=== PATIENT | male | born 1990 | race Two or more races ===

== ENCOUNTER 2017-07-18 08:34 | Emergency (ER) | payer BC ==
[2017-07-18 08:42] VITALS: BP 100/60; PULSE 91; TEMP 98.2; BMI 20.5
[2017-07-18] MEDS ORDERED: ALBUTEROL SO4 2.5/IPRATROPIUM 0.5 INH SOL 3 ML VIAL.NEB. NEB ONE ×2 (08:51→09:08)
--- NOTE | 2017-07-18 08:51 | PDOC ---
History of Present Illness - General Chief Complaint: Shortness of Breath Stated Complaint: SOB, (ASTHMA) Time Seen by Provider: 07/18/17 08:45 History Source: Patient Exam Limitations: No Limitations - History of Present Illness Initial Comments: 07/18/17 08:51 Best Contact: PCP: Dr. Ronquillo/fashion illustrator Pmhx: Asthma/no history of intubation. Last admitted to the hospital was when he was 6 years old Pshx: 2017: Left eye sx Allergies:NKDA FH:None Social Hx: Ciarettes/ 0 Alcohol/ occasionally Drugs/0 LMP:N/A 26-year-old male presents to the ER complaining of shortness of breath 3 hours. Patient states he's been coughing yesterday which triggered his asthma. Patient states he ran out of his Advair inhaler. Patient denies fever, chills, nausea/vomiting, headache, dizziness, lightheadedness, facial pains, rhinorrhea , nasal congestion, earaches, sore throat, difficulty swallowing, neck pain/ stiffness, back pains, chest pain, abdominal pains, flank pains, urinary symptoms. Patient states this is one of his mild to moderate asthma attack. Past History - Past Medical History Allergies/Adverse Reactions: Allergies Allergy/AdvReac Type Severity Reaction Status Date / Time No Known Drug Allergies Allergy Verified 07/18/17 08:38 SEAFOOD Allergy Unknown Swelling Uncoded 07/18/17 08:38 Home Medications: Ambulatory Orders Albuterol 0.083% Nebulizer Deidre [Ventolin 0.083% Nebulizer Soln -] 1 neb NEB Q4H PRN #30 vial 03/26/15 Salmeterol/Fluticasone [Advair 100Mcg/50Mcg -] 1 inh PO BID #1 inhaler 05/15/15 Fluticasone/Salmeterol [Advair 250-50 Diskus] 1 each IH BID #1 blst.w.dev predniSONE [Deltasone -] 40 mg PO DAILY #5 tablet 07/18/17 Anemia: Yes Asthma: Yes COPD: No - Immunization History Immunization Up to Date: Yes - Suicide/Smoking/Psychosocial Hx Smoking Status: No Smoking History: Never smoked Have you smoked in the past 12 months: Yes Number of Cigarettes Smoked Daily: 1 Information on smoking cessation initiated: No 'Breaking Loose' booklet given: 03/26/15 Hx Alcohol Use: Yes (social) Drug/Substance Use Hx: No Substance Use Type: None Respiratory Specific PMHX - Complaint Specific PMHX Angina: No Bronchitis: Yes Pneumonia: No Pulmonary Embolus: No TB (Tuberculosis): No Review of Systems - Review of Systems Able to Perform ROS?: Yes Comments:: 07/18/17 08:59 CONSTITUTIONAL: Absent: fever, chills, diaphoresis, generalized weakness, malaise, loss of appetite HEENT: Absent: rhinorrhea, nasal congestion, throat pain, throat swelling, difficulty swallowing, mouth swelling, ear pain, eye pain, visual Changes CARDIOVASCULAR: Absent: chest pain, loss of consciousness, palpitations, irregular heart rate, peripheral edema RESPIRATORY: +cough, sob Absent: shortness of breath, dyspnea with exertion, orthopnea, wheezing, stridor , hemoptysis GASTROINTESTINAL: Absent: abdominal pain, abdominal distension, nausea, vomiting, diarrhea, constipation, melena, hematochezia GENITOURINARY: Absent: dysuria, frequency, urgency, hesitancy, hematuria, flank pain, genital pain MUSCULOSKELETAL: Absent: myalgia, arthralgia, joint swelling SKIN: Absent: rash, itching, pallor Is the patient limited [place] Citizen proficient: No *Physical Exam - Vital Signs Last Vital Signs Temp Pulse Resp BP Pulse Ox 98.2 F 91 H 20 100/60 99 07/18/17 08:36 07/18/17 08:36 07/18/17 08:36 07/18/17 08:36 07/18/17 08:36 - Physical Exam Comments: 07/18/17 08:59 GENERAL: Well developed, well nourished. Awake and alert. No acute distress. HEENT: Normocephalic, atraumatic. PERRLA, EOMI. No conjunctival pallor. Sclera are non- icteric. Moist mucous membranes. Oropharynx is clear. NECK: Supple. Full ROM. No JVD. Carotid pulses 2+ and symmetric, without bruits. No thyromegaly. No lymphadenopathy. CARDIOVASCULAR: Regular rate and rhythm. No murmurs, rubs, or gallops. Distal pulses are 2+ and symmetric. PULMONARY: B/L lower exp wheezes No evidence of respiratory distress. No rales or rhonchi. ABDOMINAL: Soft. Non-tender. Non-distended. No rebound or guarding. No organomegaly. Normoactive bowel sounds. MUSCULOSKELETAL Normal range of motion at all joints. No bony deformities or tenderness. No CVA tenderness. EXTREMITIES: No cyanosis. No clubbing. No edema. No calf tenderness. SKIN: Warm and dry. Normal capillary refill. No rashes. No jaundice. Progress Note - Progress Note Progress Note: 0915hrs: Pt reports: "I feel so much better" 0936hrs: Pt states if he "felt like this today, I wouldn't have come" Medical Decision Making - Medical Decision Making 07/18/17 09:35 26-year-old male with a history of asthma presents to the ER complaining of shortness of breath. Patient states he ran out of his Advair/asthma medication last week. Patient states he was coughing yesterday which progressed into shortness of breath this morning from constant coughing. Patient presented with expiratory wheezes to the bases he was given 2 nebulizer treatments and 40 prednisone. Patient states he feels a lot better. I refilled his Advair disc and he will follow with his fashion illustrator this week. *DC/Admit/Observation/Transfer Diagnosis at time of Disposition: Asthma Qualifiers: Asthma severity: mild Asthma persistence: intermittent Asthma complication type : uncomplicated Qualified Code(s): J45.20 - Mild intermittent asthma, uncomplicated - Discharge Dispostion Disposition: HOME Condition at time of disposition: Stable Decision to Admit order: No - Prescriptions Prescriptions: Fluticasone/Salmeterol [Advair 250-50 Diskus] 1 each IH BID #1 blst.w.dev predniSONE [Deltasone -] 40 mg PO DAILY #5 tablet - Referrals - Patient Instructions Printed Discharge Instructions: DI for Asthma -- Adult Additional Instructions: Patient was to follow-up with your fashion illustrator as scheduled wedding makeup artist your medication/Advair and prednisone from the pharmacy Return back to the ER for severe/persistent or worsening symptoms - Post Discharge Activity Forms/Work/School Notes: Back to Work
[2017-07-18] MEDS ORDERED: predniSONE 20 MG TABLET (UD) PO ONE (09:08)
[2017-07-18] MEDS ORDERED: predniSONE 20 MG TABLET (UD) ONE (09:10)
== END 2017-07-18 10:08 | disposition home or self-care (01) ==
LOC: JERFT 08:34 → JER 08:34 → JERFT 10:08
PROC: 3E0F7GC Introduction of Other Therapeutic Substance into Respiratory Tract, Via Natural or Artificial Opening (ICD-10-PCS; principal; 2017-07-18)
DX: J45.20 Mild intermittent asthma, uncomplicated (principal)
CPT/HCPCS: 99281-25; J7620

== ENCOUNTER 2018-01-03 12:39 | Emergency (ER) | payer SELFPAY ==
[2018-01-03 12:45] VITALS: BP 148/86; PULSE 100; TEMP 98.4; BMI 21.8
[2018-01-03] MEDS ORDERED: ALBUTEROL SO4 2.5/IPRATROPIUM 0.5 INH SOL 3 ML VIAL.NEB. NEB ONE ×2 (13:06→13:14)
[2018-01-03] MEDS ORDERED: methylPREDNISolone NA SUCC 125 MG/2 ML VIAL IM ONE (13:18)
[2018-01-03] MEDS ORDERED: methylPREDNISolone NA SUCC 125 MG/2 ML VIAL ONE (13:22)
--- NOTE | 2018-01-03 14:01 | PDOC ---
History of Present Illness - General Chief Complaint: Cold Symptoms Stated Complaint: ASTHMA Time Seen by Provider: 01/03/18 13:03 History Source: Patient Exam Limitations: Clinical Condition - History of Present Illness Initial Comments: 01/03/18 14:00 Patient with h/o Asthma Present with complaint of wheezing, chest tightness, nasal congestion and cough since yesterday. Patient denies fever, chills, headache, dizziness, chest pain. Patient denies any other symptoms 01/03/18 14:23 Timing/Duration: 24 hours Past History - Past Medical History Allergies/Adverse Reactions: Allergies Allergy/AdvReac Type Severity Reaction Status Date / Time No Known Drug Allergies Allergy Verified 01/03/18 12:45 SEAFOOD Allergy Unknown Swelling Uncoded 01/03/18 12:45 Home Medications: Ambulatory Orders Albuterol 0.083% Nebulizer Deidre [Ventolin 0.083% Nebulizer Soln -] 1 neb NEB Q4H PRN #30 vial 03/26/15 Salmeterol/Fluticasone [Advair 100Mcg/50Mcg -] 1 inh PO BID #1 inhaler 05/15/15 Fluticasone/Salmeterol [Advair 250-50 Diskus] 1 each IH BID #1 blst.w.dev Loratadine 10 mg PO DAILY #10 capsule 01/03/18 predniSONE [Deltasone -] 20 mg PO BID 5 Days #10 tablet 01/03/18 Anemia: Yes Asthma: Yes COPD: No - Immunization History Immunization Up to Date: Yes - Suicide/Smoking/Psychosocial Hx Smoking Status: No Smoking History: Never smoked Have you smoked in the past 12 months: Yes Number of Cigarettes Smoked Daily: 4 Information on smoking cessation initiated: Yes 'Breaking Loose' booklet given: 01/03/18 Hx Alcohol Use: No Drug/Substance Use Hx: No Substance Use Type: None Review of Systems - Review of Systems Able to Perform ROS?: Yes Is the patient limited [place] proficient: No Constitutional: No: Chills, Fever, Weakness HEENTM: Yes: See HPI, Nose Congestion. No: Eye Pain, Blurred Vision, Tearing, Recent change in vision, Double Vision, Cataracts, Ear Pain, Ocular Prothesis, Ear Discharge, Nose Pain, Tinnitus, Nose Bleeding, Hearing Loss, Throat Pain, Throat Swelling, Mouth Pain, Dental Problems, Difficulty Swallowing, Mouth Swelling, Other Respiratory: Yes: See HPI, Wheezing. No: Cough, Orthopnea, Shortness of Breath , SOB with Exertion, SOB at Rest, Stridor, Productive cough, Hemoptysis, Other Cardiac (ROS): Yes: See HPI, Chest Tightness. No: Chest Pain, Edema, Irregular Heart Rate, Lightheadedness, Palpitations, Syncope, Other ABD/GI: No: Abdominal Distended, Abd. Pain w/ defecation, Blood Streaked Bowels , Constipated, Diarrhea, Difficulty Swallowing, Nausea, Poor Appetite, Poor Fluid Intake, Rectal Bleeding, Vomiting, Indigestion, Abdominal cramping, Tarry Stools, Other All Other Systems: Reviewed and Negative *Physical Exam - Vital Signs Last Vital Signs Temp Pulse Resp BP Pulse Ox 98.4 F 100 H 19 148/86 98 01/03/18 12:44 01/03/18 12:44 01/03/18 12:44 01/03/18 12:44 01/03/18 12:44 - Physical Exam Comments: 01/03/18 14:24 GENERAL: Well developed, well nourished. Awake and alert. No acute distress. HEENT: Normocephalic, atraumatic. PERRLA, EOMI. No conjunctival pallor. Sclera are non-icteric. Moist mucous membranes. Oropharynx is clear. NECK: Supple. Full ROM. CARDIOVASCULAR: Regular rate and rhythm. No murmurs, rubs, or gallops. Distal pulses are 2+ and symmetric. PULMONARY: Moderate diffuse wheezing.No evidence of respiratory distress. No rales or rhonchi. ABDOMINAL: Soft. Non-tender. Non-distended. No rebound or guarding. No organomegaly. Normoactive bowel sounds. MUSCULOSKELETAL Normal range of motion at all joints. EXTREMITIES: No cyanosis. No clubbing. No edema. No calf tenderness. SKIN: Warm and dry. Normal capillary refill. No rashes. No jaundice. NEUROLOGICAL: Alert, awake, appropriate. Gait is normal without ataxia. PSYCHIATRIC: Cooperative. Good eye contact. Appropriate mood General Appearance: Yes: Nourished, Appropriately Dressed. No: Apparent Distress ED Treatment Course - Medications Given in the ED: ED Medications Discontinued Medications Generic Name Dose Route Start Last Admin Trade Name Freq PRN Reason Stop Dose Admin Albuterol/Ipratropium 1 amp 01/03/18 13:06 01/03/18 13:19 Duoneb - NEB 01/03/18 13:07 1 amp ONCE ONE Administration Methylprednisolone Sodium Succinate 125 mg 01/03/18 13:18 01/03/18 13:30 Solu-Medrol - IM 01/03/18 13:19 125 mg ONCE ONE Administration Medical Decision Making - Medical Decision Making 01/03/18 14:25 Patient with history of asthma present with complaint of nasal congestion, wheezing, chest tightness and cough since yesterday. Exam significant for moderate diffuse wheezing. Nebulizer treatment of albuterol and Atrovent given which relieved bronchospasm and wheezing. Solu-Medrol 125 mg IM given. Patient is stable for discharge on prednisone and home rescue inhaler with geospatial applications developer follow-up. *DC/Admit/Observation/Transfer Diagnosis at time of Disposition: Cough Asthma exacerbation Qualifiers: Asthma severity: moderate Asthma persistence: unspecified Qualified Code(s): J45.901 - Unspecified asthma with (acute) exacerbation URI (upper respiratory infection) Qualifiers: URI type: unspecified URI Qualified Code(s): J06.9 - Acute upper respiratory infection, unspecified - Discharge Dispostion Disposition: HOME Condition at time of disposition: Stable Decision to Admit order: No - Prescriptions Prescriptions: Loratadine 10 mg PO DAILY #10 capsule predniSONE [Deltasone -] 20 mg PO BID 5 Days #10 tablet - Referrals Referrals: Demetrio Huntley MD [Staff Physician] - - Patient Instructions Printed Discharge Instructions: DI for Asthma -- Adult Additional Instructions: Take medications as prescribed. Follow-up with primary care as needed. - Post Discharge Activity
== END 2018-01-03 14:36 | disposition home or self-care (01) ==
LOC: JERFT 12:39
PROC: 3E0233Z Introduction of Anti-inflammatory into Muscle, Percutaneous Approach (ICD-10-PCS; principal; 2018-01-03)
PROC: 3E0F7GC Introduction of Other Therapeutic Substance into Respiratory Tract, Via Natural or Artificial Opening (ICD-10-PCS; 2018-01-03)
DX: J45.901 Unspecified asthma with (acute) exacerbation (principal)
CPT/HCPCS: 99281-25

== ENCOUNTER 2018-02-02 10:04 | Emergency (ER) | payer SELFPAY ==
[2018-02-02 10:21] VITALS: BP 145/81; PULSE 88; TEMP 99.2; BMI 20.3
[2018-02-02] MEDS ORDERED: ALBUTEROL SO4 2.5/IPRATROPIUM 0.5 INH SOL 3 ML VIAL.NEB. NEB ONE ×3 (10:34→11:45)
[2018-02-02] MEDS ORDERED: predniSONE 20 MG TABLET (UD) ONE (10:34)
[2018-02-02] MEDS ORDERED: predniSONE 20 MG TABLET (UD) PO ONE (10:35)
[2018-02-02] MEDS: ALBUTEROL SO4 2.5/IPRATROPIUM 0.5 INH SOL 3 ML VIAL.NEB. NEB SCH ×2 (10:38→11:03)
--- NOTE | 2018-02-02 10:38 | PDOC ---
History of Present Illness - General Chief Complaint: Asthma Stated Complaint: ASTHMA Time Seen by Provider: 02/02/18 10:33 History Source: Patient Exam Limitations: No Limitations - History of Present Illness Initial Comments: 02/02/18 10:36 Patient came to emergency department for evaluation of wheezing, chest tightness , and asthma exacerbation with cold. Denies fever, states has some whitish phlegm production but denies sore throat pain or ear pain. Severity: reports: mild, moderate Associated Symptoms: reports: denies symptoms, chest pain/soreness, cough, fever /chills, nasal congestion Past History - Travel Traveled outside of the country in the last 30 days: No Close contact w/someone who was outside of country & ill: No - Past Medical History Allergies/Adverse Reactions: Allergies Allergy/AdvReac Type Severity Reaction Status Date / Time No Known Drug Allergies Allergy Verified 02/02/18 10:33 SEAFOOD Allergy Unknown Swelling Uncoded 02/02/18 10:33 Home Medications: Ambulatory Orders Albuterol 0.083% Nebulizer Deidre [Ventolin 0.083% Nebulizer Soln -] 1 neb NEB Q4H PRN #30 vial 03/26/15 Fluticasone/Salmeterol [Advair 250-50 Diskus] 1 each IH BID #1 blst.w.dev Albuterol 0.083% Nebulizer Deidre [Ventolin 0.083% Nebulizer Soln -] 1 neb NEB Q4H PRN #30 vial 02/02/18 predniSONE [Deltasone -] 20 mg PO BID #8 tablet 02/02/18 Anemia: Yes Asthma: Yes COPD: No - Immunization History Immunization Up to Date: Yes - Suicide/Smoking/Psychosocial Hx Smoking Status: No Smoking History: Former smoker Have you smoked in the past 12 months: No Number of Cigarettes Smoked Daily: 4 If you are a former smoker, when did you quit?: 2months Information on smoking cessation initiated: No 'Breaking Loose' booklet given: 01/03/18 Hx Alcohol Use: No Drug/Substance Use Hx: No Substance Use Type: None Respiratory Specific PMHX - Complaint Specific PMHX Angina: No Bronchitis: Yes Pneumonia: No Pulmonary Embolus: No TB (Tuberculosis): No Review of Systems - Review of Systems Able to Perform ROS?: Yes Is the patient limited [place] proficient: Yes Constitutional: Yes: Symptoms Reported, See HPI, Malaise. No: Fever, Loss of Appetite HEENTM: Yes: Symptoms Reported, See HPI, Nose Congestion Respiratory: Yes: Symptoms reported, See HPI, Cough, Wheezing Cardiac (ROS): No: Symptoms Reported Musculoskeletal: Yes: See HPI. No: Symptoms Reported Integumentary: Yes: See HPI. No: Symptoms Reported Neurological: Yes: Symptoms reported, See HPI All Other Systems: Reviewed and Negative *Physical Exam - Vital Signs Last Vital Signs Temp Pulse Resp BP Pulse Ox 99.2 F 88 16 145/81 96 02/02/18 10:18 02/02/18 10:18 02/02/18 10:18 02/02/18 10:18 02/02/18 10:18 - Physical Exam General Appearance: Yes: Nourished, Appropriately Dressed, Apparent Distress, Mild Distress HEENT: positive: EOMI, [place], Normal ENT Inspection, TMs Normal (congested but landmarks visualized), Pharynx Normal, Rhinorrhea. negative: Tonsillar Exudate , Tonsillar Erythema, Sinus Tenderness Neck: positive: Supple. negative: Tender Respiratory/Chest: positive: Chest Tender, Decreased Breath Sounds, Wheezing. negative: Lungs Clear, Normal Breath Sounds Gastrointestinal/Abdominal: positive: Soft Musculoskeletal: positive: Normal Inspection Extremity: positive: Normal Capillary Refill Integumentary: positive: Normal Color, Dry, Warm, Pale Neurologic: positive: zone manager II-XII NML intact, Fully Oriented, Alert, Normal Mood/ Affect, Normal Response, Motor Strength 5/5 Moderate Sedation - Procedure Monitoring Vital Signs: Procedure Monitoring Vital Signs Temperature 99.2 F 02/02/18 10:18 Pulse Rate 88 02/02/18 10:18 Respiratory Rate 16 02/02/18 10:18 Blood Pressure 145/81 02/02/18 10:18 O2 Sat by Pulse Oximetry (%) 96 02/02/18 10:18 Progress Note - Progress Note Progress Note: asthma exacerbation, much improved after prednisone and 3 DuoNeb treatments. *DC/Admit/Observation/Transfer Diagnosis at time of Disposition: Asthma exacerbation, mild - Discharge Dispostion Disposition: HOME Condition at time of disposition: Stable Decision to Admit order: No - Prescriptions Prescriptions: Albuterol 0.083% Nebulizer Deidre [Ventolin 0.083% Nebulizer Soln -] 1 neb NEB Q4H PRN #30 vial PRN Reason: Cough predniSONE [Deltasone -] 20 mg PO BID #8 tablet - Referrals Referrals: Shahzad Ronquillo [Primary Care Provider] - - Patient Instructions Printed Discharge Instructions: Asthma -- Adult Additional Instructions: Rest, drink lots of fluids: Teas, water, soups, Pedialyte Saltwater gargles Steamy showers/seem to face break up mucus Avoid contact with others until fevers and cough resolved Lots of handwashing and good hygiene Continue [id number] medications for symptomatic relief Tylenol or Motrin for fever and pain Continue albuterol nebulizers every 4-6 hours for the next 2 days then as needed for continued cough Prednisone as directed until completed Followup with private physician in one to 2 days Return to emergency department / pediatric hospital for worsened symptoms, fevers, dehydration - Post Discharge Activity Forms/Work/School Notes: Back to Work
== END 2018-02-02 12:32 | disposition home or self-care (01) ==
LOC: JER 10:04 → JERFT 10:04
PROC: 3E0F7GC Introduction of Other Therapeutic Substance into Respiratory Tract, Via Natural or Artificial Opening (ICD-10-PCS; principal; 2018-02-02)
PROC: 3E0F7GC Introduction of Other Therapeutic Substance into Respiratory Tract, Via Natural or Artificial Opening (ICD-10-PCS; 2018-02-02)
DX: J45.901 Unspecified asthma with (acute) exacerbation (principal)
CPT/HCPCS: 99281-25

== ENCOUNTER 2018-03-05 14:14 | Emergency (ER) | payer SELFPAY ==
[2018-03-05 14:23] VITALS: BP 142/83; PULSE 94; TEMP 98.2; BMI 21.4
--- NOTE | 2018-03-05 14:23 | PDOC ---
Rapid Medical Evaluation Chief Complaint: Asthma Time Seen by Provider: 03/05/18 14:19 Medical Evaluation: Allergies Allergy/AdvReac Type Severity Reaction Status Date / Time No Known Drug Allergies Allergy Verified 02/02/18 10:33 SEAFOOD Allergy Unknown Swelling Uncoded 02/02/18 10:33 03/05/18 14:20 I performed a brief in person evaluation. CC: Wheezing HPI: Pt is a 27 YO male with a hx of asthma and states that his albuterol is not relieving his wheezing this morning. Pt admits to smoking. PE: Skin: Clear Lungs: Mild wheezing both anteriorly and posteriorly Heart: Tachy MS: Moves all extremities without difficulty Neuro: Alert Psych: Appropriate affect Pt will go to [facility] for further evaluation. Discharge Disposition - Diagnosis Asthma attack Qualifiers: Asthma severity: mild Asthma persistence: unspecified Qualified Code(s): J45.901 - Unspecified asthma with (acute) exacerbation - Referrals - Patient Instructions - Post Discharge Activity
[2018-03-05] MEDS ORDERED: DEXAMETHASONE LIQUID 0.5 MG/5 ML 240 ML BULK BOTTLE PO ONE (14:42)
[2018-03-05] MEDS ORDERED: DEXAMETHASONE SOD PHOSPHATE 10 MG/1 ML VIAL ONE (14:46)
[2018-03-05] MEDS ORDERED: ALBUTEROL SO4 2.5/IPRATROPIUM 0.5 INH SOL 3 ML VIAL.NEB. NEB ONE (14:46)
--- NOTE | 2018-03-05 14:46 | PDOC ---
History of Present Illness - General Chief Complaint: Asthma Stated Complaint: ASTHMA Time Seen by Provider: 03/05/18 14:19 - History of Present Illness Initial Comments: 03/05/18 14:43 27 y/o M w PMH significant for astham presents for evaluaiton of wheezing x1 day unrelieved w home albuterol x1 tx. No systemic symptoms, no prior hospitalizations or intubations for asthma Past History - Past Medical History Allergies/Adverse Reactions: Allergies Allergy/AdvReac Type Severity Reaction Status Date / Time No Known Drug Allergies Allergy Verified 02/02/18 10:33 SEAFOOD Allergy Unknown Swelling Uncoded 02/02/18 10:33 Home Medications: Ambulatory Orders Albuterol 0.083% Nebulizer Deidre [Ventolin 0.083% Nebulizer Soln -] 1 neb NEB Q4H PRN #30 vial 03/26/15 Fluticasone/Salmeterol [Advair 250-50 Diskus] 1 each IH BID #1 blst.w.dev Albuterol 0.083% Nebulizer Deidre [Ventolin 0.083% Nebulizer Soln -] 1 neb NEB Q4H PRN #30 vial 02/02/18 Anemia: Yes Asthma: Yes COPD: No - Immunization History Immunization Up to Date: Yes - Suicide/Smoking/Psychosocial Hx Smoking Status: No Smoking History: Current every day smoker Have you smoked in the past 12 months: No Number of Cigarettes Smoked Daily: 4 If you are a former smoker, when did you quit?: 2months Information on smoking cessation initiated: No 'Breaking Loose' booklet given: 01/03/18 Hx Alcohol Use: No Drug/Substance Use Hx: No Substance Use Type: None Review of Systems - Review of Systems Constitutional: No: Fever Respiratory: Yes: Cough, Shortness of Breath, Wheezing *Physical Exam - Vital Signs Last Vital Signs Temp Pulse Resp BP Pulse Ox 98.2 F 94 H 16 142/83 99 03/05/18 14:20 03/05/18 14:20 03/05/18 14:20 03/05/18 14:20 03/05/18 14:20 - Physical Exam Comments: 03/05/18 14:45 HEAD: NC/AT EYES: Conjuntiva clear Ears: Canals and TM's normal NOSE: No d/c THROAT: Moist mucous membrances, oral pharanx clear, uvula midline NECK: Supple without adenopathy CARDIAC: S1 S2 LUNGS: Diffuse wheezing ABDOMEN: Soft NT ND MS: Full ROM in all joints without edema NEUROLOGIC: No gross sensory or motor deficits, NVID SKIN: Normal color and temperature no lesions or rashes Moderate Sedation - Procedure Monitoring Vital Signs: Procedure Monitoring Vital Signs Temperature 98.2 F 03/05/18 14:20 Pulse Rate 94 H 03/05/18 14:20 Respiratory Rate 16 03/05/18 14:20 Blood Pressure 142/83 03/05/18 14:20 O2 Sat by Pulse Oximetry (%) 99 03/05/18 14:20 Medical Decision Making - Medical Decision Making 03/05/18 16:10 mild wheezing after 2nd duo neb, cleared no wheezing after 4th duo neb *DC/Admit/Observation/Transfer Diagnosis at time of Disposition: Asthma exacerbation Asthma attack Qualifiers: Asthma severity: mild Asthma persistence: unspecified Qualified Code(s): J45.901 - Unspecified asthma with (acute) exacerbation - Discharge Dispostion Disposition: HOME Condition at time of disposition: Improved Decision to Admit order: No - Referrals Referrals: Demetrio Huntley MD [Staff Physician] - - Patient Instructions Printed Discharge Instructions: Asthma -- Adult Additional Instructions: Return to the ER is symptoms return, you were given a long acting steroid today. Follow up with pulmonology in 1-2 days for futher evaluation and treatment options. Continue your current albuterol at home as directed. - Post Discharge Activity
[2018-03-05] MEDS: ALBUTEROL SO4 2.5/IPRATROPIUM 0.5 INH SOL 3 ML VIAL.NEB. NEB SCH ×4 (14:51→16:07)
== END 2018-03-05 16:14 | disposition home or self-care (01) ==
LOC: JERFT 14:14
PROC: 3E0F7GC Introduction of Other Therapeutic Substance into Respiratory Tract, Via Natural or Artificial Opening (ICD-10-PCS; principal; 2018-03-05)
DX: J45.901 Unspecified asthma with (acute) exacerbation (principal); F17.210 Nicotine dependence, cigarettes, uncomplicated
CPT/HCPCS: 99281-25

== ENCOUNTER 2019-02-14 14:58 | Emergency (ER) | payer OTHER ==
[2019-02-14] MEDS ORDERED: ALBUTEROL SO4 2.5/IPRATROPIUM 0.5 INH SOL 3 ML VIAL.NEB. NEB ONE (15:04)
--- NOTE | 2019-02-14 15:04 | PDOC ---
Rapid Medical Evaluation Time Seen by Provider: 02/14/19 15:01 Medical Evaluation: Allergies Allergy/AdvReac Type Severity Reaction Status Date / Time No Known Drug Allergies Allergy Verified 02/14/19 15:01 SEAFOOD Allergy Unknown Swelling Uncoded 02/14/19 15:01 02/14/19 15:02 Pt c/o: hx asthma, cough wheezing sob with relief of inhaler, no fever Pt on brief exam: no wheezing, + rhinorrhea, mild accessory muscle usage Pt ordered for: fredrick Pt to proceed to the ED Discharge Disposition - Diagnosis Shortness of breath - Referrals - Patient Instructions - Post Discharge Activity
[2019-02-14 15:06] VITALS: BP 123/97; PULSE 99; TEMP 97.8; BMI 21.2
--- NOTE | 2019-02-14 16:32 | PDOC ---
History of Present Illness - General Chief Complaint: Cold Symptoms Stated Complaint: ASTHMA Time Seen by Provider: 02/14/19 15:01 History Source: Patient - History of Present Illness Initial Comments: 02/14/19 16:36 Chief complaint: Wheezing Patient 28-year-old male with a history of asthma, never been intubated, has not been hospitalized in about 6 7 years who was sick with upper respiratory infection about 2 weeks ago and found that he has been wheezing in the last day or 2. He has been using his inhaler every couple of hours which seems to be helping but is worried because he is using it too often and he is going to run out. No fever. No shortness of breath. Patient last smoked a cigarette 4 days ago but states he is not regularly smoking GENERAL/CONSTITUTIONAL: No fever, weakness. dizziness HEAD, EYES, EARS, NOSE AND THROAT: No change in vision. No ear pain or discharge. No sore throat. CARDIOVASCULAR: No chest pain RESPIRATORY: + Wheezing GASTROINTESTINAL: No pain, nausea, vomiting, diarrhea or constipation GENITOURINARY: No dysuria MUSCULOSKELETAL: No neck or back pain SKIN: No rash NEUROLOGIC: No headache, vertigo, loss of consciousness, or loss of sensation. GENERAL: The patient is awake, alert, and fully oriented, in no acute distress. HEAD: Normal with no signs of trauma. EYES: Pupils equal, round and reactive to light, sclera anicteric, conjunctiva clear. ENT: pharynx: no erythema, no exudate, uvula midline NECK: supple CHEST: clear, nontender, rr ABD: soft, nontender BACK: no tenderness or signs of injury EXTREMITIES: Normal range of motion, no edema. NEUROLOGICAL: Normal speech, normal gait. SKIN: Warm, Dry Past History - Past Medical History Allergies/Adverse Reactions: Allergies Allergy/AdvReac Type Severity Reaction Status Date / Time No Known Drug Allergies Allergy Verified 02/14/19 15:01 SEAFOOD Allergy Unknown Swelling Uncoded 02/14/19 15:01 Home Medications: Ambulatory Orders Fluticasone/Salmeterol [Advair 250-50 Diskus] 1 each IH BID #1 blst.w.dev Albuterol 0.083% Nebulizer Deidre [Ventolin 0.083% Nebulizer Soln -] 1 neb NEB Q4H PRN #30 vial 02/02/18 Albuterol Sulfate Inhaler - [Ventolin HFA Inhaler -] 2 inh PO Q4H #1 inh Albuterol Sulfate Inhaler - [Ventolin Hfa Inhaler -] 1 - 2 inh PO Q4H 02/14/19 Fluticasone/Salmeterol [Advair Hfa 115-21 Mcg Inhaler] 2 inh PO BID #1 inhaler 02/14/19 predniSONE [Deltasone -] 40 mg PO DAILY #10 tablet 02/14/19 Anemia: Yes Asthma: Yes COPD: No - Immunization History Immunization Up to Date: Yes - Psycho Social/Smoking Cessation Hx Smoking Status: No Smoking History: Never smoked Have you smoked in the past 12 months: No Number of Cigarettes Smoked Daily: 4 If you are a former smoker, when did you quit?: 2months 'Breaking Loose' booklet given: 01/03/18 Hx Alcohol Use: No Drug/Substance Use Hx: No Substance Use Type: None *Physical Exam - Vital Signs Last Vital Signs Temp Pulse Resp BP Pulse Ox 97.8 F 99 H 20 123/97 98 02/14/19 15:04 02/14/19 15:04 02/14/19 15:04 02/14/19 15:04 02/14/19 15:04 Medical Decision Making - Medical Decision Making 02/14/19 16:40 28-year-old male with history of asthma, states he has been wheezing, had upper respiratory symptoms 2 weeks ago, no fever and appears well. Lungs are clear now patient had use inhaler. Patient does not feel that he needs anything here. But we will give him refill of his albuterol, Advair and a prescription for prednisone. Discussed issues, findings, results, applicable medications and treatments and follow-up. All these were understood and all questions were answered Discharge - Discharge Information Problems reviewed: Yes Clinical Impression/Diagnosis: Asthma Qualifiers: Asthma severity: mild Asthma persistence: intermittent Asthma complication type : uncomplicated Qualified Code(s): J45.20 - Mild intermittent asthma, uncomplicated Condition: Stable Disposition: HOME - Admission No - Additional Discharge Information Prescriptions: Albuterol Sulfate Inhaler - [Ventolin HFA Inhaler -] 2 inh PO Q4H #1 inh Fluticasone/Salmeterol [Advair Hfa 115-21 Mcg Inhaler] 2 inh PO BID #1 inhaler predniSONE [Deltasone -] 40 mg PO DAILY #10 tablet - Follow up/Referral - Patient Discharge Instructions Patient Printed Discharge Instructions: Asthma -- Adult Additional Instructions: Use albuterol inhaler, 2 puffs every 4 hours as needed for wheezing. Take prednisone 40 mg once daily until finished. start taking the Advair after you finish the prednisone Return to the ER if fever, shortness of breath or getting sicker. Otherwise follow-up with your doctor in one to 2 days - Post Discharge Activity
== END 2019-02-14 17:03 | disposition home or self-care (01) ==
LOC: JERFT 14:58
PROC: 3E0F7GC Introduction of Other Therapeutic Substance into Respiratory Tract, Via Natural or Artificial Opening (ICD-10-PCS; principal; 2019-02-14)
DX: J45.20 Mild intermittent asthma, uncomplicated (principal); Z86.2 Personal history of diseases of the blood and blood-forming organs and certain disorders involving the immune mechanism; Z91.013 Allergy to seafood
CPT/HCPCS: 99281-25

== ENCOUNTER 2019-03-17 17:13 | Emergency (ER) | payer OTHER ==
[2019-03-17 17:19] VITALS: BP 157/71; PULSE 95; TEMP 98; BMI 21.2
[2019-03-17] MEDS ORDERED: ALBUTEROL SO4 2.5/IPRATROPIUM 0.5 INH SOL 3 ML VIAL.NEB. NEB ONE (17:19)
--- NOTE | 2019-03-17 17:19 | PDOC ---
Rapid Medical Evaluation Time Seen by Provider: 03/17/19 17:16 Medical Evaluation: Allergies Allergy/AdvReac Type Severity Reaction Status Date / Time No Known Drug Allergies Allergy Verified 03/17/19 17:16 SEAFOOD Allergy Unknown Swelling Uncoded 03/17/19 17:16 03/17/19 17:16 I performed a brief in-person evaluation of this patient. 28-year-old male smoker with asthma (Advair and albuterol at home, admissions in childhood, never intubated), corneal transplant presenting with 2 days of productive cough, back pain, and wheezing. Pertinent physical exam findings: Scant expiratory wheezing. Speaking full sentences. I have ordered the following: DuoNeb CXR Patient to proceed to the ED for further evaluation. Discharge Disposition - Diagnosis Asthma exacerbation - Referrals - Patient Instructions - Post Discharge Activity
[2019-03-17] MEDS ORDERED: KETOROLAC TROMETHAMINE 30 MG/1 ML VIAL IM ONE (18:03)
[2019-03-17] MEDS ORDERED: KETOROLAC TROMETHAMINE 30 MG/1 ML VIAL ONE (18:04)
--- NOTE | 2019-03-17 19:10 | PDOC ---
History of Present Illness - General Chief Complaint: Asthma Stated Complaint: ASTHMA/SACRAL/PAIN Time Seen by Provider: 03/17/19 17:16 History Source: Patient Exam Limitations: No Limitations Past History - Past Medical History Allergies/Adverse Reactions: Allergies Allergy/AdvReac Type Severity Reaction Status Date / Time No Known Drug Allergies Allergy Verified 03/17/19 17:16 SEAFOOD Allergy Unknown Swelling Uncoded 03/17/19 17:16 Home Medications: Ambulatory Orders Fluticasone/Salmeterol [Advair 250-50 Diskus] 1 each IH BID #1 blst.w.dev Albuterol 0.083% Nebulizer Deidre [Ventolin 0.083% Nebulizer Soln -] 1 neb NEB Q4H PRN #30 vial 02/02/18 Albuterol Sulfate Inhaler - [Ventolin HFA Inhaler -] 2 inh PO Q4H #1 inh Albuterol Sulfate Inhaler - [Ventolin Hfa Inhaler -] 1 - 2 inh PO Q4H 02/14/19 Fluticasone/Salmeterol [Advair Hfa 115-21 Mcg Inhaler] 2 inh PO BID #1 inhaler 02/14/19 predniSONE [Deltasone -] 40 mg PO DAILY #10 tablet 02/14/19 Albuterol Sulfate Inhaler - [Ventolin HFA Inhaler -] 1 - 2 inh PO Q4H #1 inhaler 03/17/19 Cyclobenzaprine HCl [Flexeril 10 mg] 10 mg PO TID PRN #15 tablet 03/17/19 Fluticasone/Salmeterol [Advair 250-50 Diskus] 1 each IH BID #1 blst.w.dev Anemia: Yes Asthma: Yes COPD: No - Immunization History Immunization Up to Date: Yes - Psycho Social/Smoking Cessation Hx Smoking Status: No Smoking History: Current every day smoker Have you smoked in the past 12 months: No Number of Cigarettes Smoked Daily: 4 If you are a former smoker, when did you quit?: 2months Information on smoking cessation initiated: No 'Breaking Loose' booklet given: 01/03/18 Hx Alcohol Use: No Drug/Substance Use Hx: No Substance Use Type: None *Physical Exam - Vital Signs Last Vital Signs Temp Pulse Resp BP Pulse Ox 98.0 F 95 H 18 157/71 99 03/17/19 17:17 03/17/19 17:17 03/17/19 17:17 03/17/19 17:17 03/17/19 17:17 - Physical Exam General Appearance: No: Apparent Distress Respiratory/Chest: positive: Lungs Clear, Normal Breath Sounds. negative: Respiratory Distress Cardiovascular: positive: Regular Rhythm, Regular Rate, S1, S2. negative: Murmur Gastrointestinal/Abdominal: positive: Normal Bowel Sounds, Soft. negative: Tender, Distended, Guarding, Rebound Musculoskeletal: positive: Muscle Spasm (along R thoracic paraspinal muscles, pain with movement of spine). negative: Vertebral Tenderness Integumentary: positive: Normal Color Neurologic: positive: Alert ED Treatment Course - Medications Given in the ED: ED Medications Discontinued Medications Generic Name Dose Route Start Last Admin Trade Name Freq PRN Reason Stop Dose Admin Albuterol/Ipratropium 1 amp 03/17/19 17:19 03/17/19 18:05 Duoneb - NEB 03/17/19 17:20 Not Given ONCE ONE Ketorolac Tromethamine 30 mg 03/17/19 18:03 03/17/19 18:04 Toradol Injection - IM 03/17/19 18:04 30 mg ONCE ONE Administration Medical Decision Making - Medical Decision Making 28 y/o M with hx of asthma presents with having back pain from yesterday. Has mild cough x 2-3. States he is not here for asthma exacerbation; mentions just needs refill for Advair and Albuterol, but not here for asthma like symptoms. Back pain is worse with cough and movement of spine. Denies trauma, heavy lifting, fever, URI sxs, cp, abd pain, n/v, urinary sxs. CXR negative Likely MSK pain given muscle spasm Patient feeling better after getting Toradol; did not want Flexeril here Stable for dc 03/17/19 18:56 Discharge - Discharge Information Problems reviewed: Yes Clinical Impression/Diagnosis: Back spasm Condition: Stable Disposition: HOME - Admission No - Additional Discharge Information Prescriptions: Albuterol Sulfate Inhaler - [Ventolin HFA Inhaler -] 1 - 2 inh PO Q4H #1 inhaler Cyclobenzaprine HCl [Flexeril 10 mg] 10 mg PO TID PRN #15 tablet PRN Reason: Muscle Spasms Fluticasone/Salmeterol [Advair 250-50 Diskus] 1 each IH BID #1 blst.w.dev Prescription Drug Monitoring Program (I-STOP) results: I-STOP not reviewed - Follow up/Referral - Patient Discharge Instructions Patient Printed Discharge Instructions: DI for Muscle Spasm Additional Instructions: Thank you for choosing [facility]. It was a pleasure taking care of you. You may take Motrin 600 mg every 6 hours by mouth as needed for mild to moderate pain. Take Motrin with food. Use warm compresses/epsom salt baths as needed for muscle spasm Use Flexeril as needed Return to the Emergency Department if your symptoms worsen or persist or have other concerning symptoms. - Post Discharge Activity
== END 2019-03-17 19:14 | disposition home or self-care (01) ==
LOC: JERFT 17:13
PROC: 3E0233Z Introduction of Anti-inflammatory into Muscle, Percutaneous Approach (ICD-10-PCS; principal; 2019-03-17)
DX: J45.901 Unspecified asthma with (acute) exacerbation (principal); M62.830 Muscle spasm of back; Z91.013 Allergy to seafood
CPT/HCPCS: 71046-TC-FY; 96372; 99281-25

== ENCOUNTER 2019-09-09 14:39 | Emergency (ER) | payer OTHER ==
[2019-09-09 14:49] VITALS: BP 143/65; PULSE 77; TEMP 97.8; BMI 23.6
--- NOTE | 2019-09-09 14:51 | PDOC ---
Rapid Medical Evaluation Chief Complaint: Asthma Time Seen by Provider: 09/09/19 14:47 Medical Evaluation: Allergies Allergy/AdvReac Type Severity Reaction Status Date / Time No Known Drug Allergies Allergy Verified 09/09/19 14:47 SEAFOOD Allergy Unknown Swelling Uncoded 09/09/19 14:47 09/09/19 14:47 CC: wheezing, chest tightness, with no cough since this am, ran out of advair this am and ran out of the albuterol 2 weeks ago. no other complaints Exam: VSS, mild exp wheeze sylvie Plan: ft Discharge Disposition - Diagnosis Asthma exacerbation, mild - Referrals - Patient Instructions - Post Discharge Activity
[2019-09-09] MEDS ORDERED: DEXAMETHASONE LIQUID 0.5 MG/5 ML PO ONE (15:24)
[2019-09-09] MEDS ORDERED: ALBUTEROL SO4 2.5/IPRATROPIUM 0.5 INH SOL 3 ML VIAL.NEB. NEB ONE ×2 (15:24→15:54)
--- NOTE | 2019-09-09 15:24 | PDOC ---
History of Present Illness - General Chief Complaint: Asthma Stated Complaint: ASTHMA Time Seen by Provider: 09/09/19 14:47 History Source: Patient Exam Limitations: No Limitations Past History - Travel History Traveled outside of the country in the last 30 days: No Close contact w/someone who was outside of country & ill: No - Medical History Allergies/Adverse Reactions: Allergies Allergy/AdvReac Type Severity Reaction Status Date / Time No Known Drug Allergies Allergy Verified 09/09/19 14:47 SEAFOOD Allergy Unknown Swelling Uncoded 09/09/19 14:47 Home Medications: Ambulatory Orders Albuterol 0.083% Nebulizer Deidre [Ventolin 0.083% Nebulizer Soln -] 1 neb NEB Q4H PRN #30 vial 02/02/18 Albuterol Sulfate Inhaler - [Ventolin Hfa Inhaler -] 1 - 2 inh PO Q4H 02/14/19 Albuterol Sulfate [Albuterol Sulfate Hfa] 2 puff IH Q4H PRN #1 hfa.aer.ad Fluticasone/Salmeterol [Advair 250-50 Diskus] 1 each IH BID #1 blst.w.dev 08/02/19 predniSONE [Deltasone -] 40 mg PO DAILY #6 tablet 08/02/19 Albuterol Sulfate Inhaler - [Ventolin HFA Inhaler -] 1 - 2 inh PO Q4H #1 inhaler 09/09/19 Fluticasone/Salmeterol [Advair 250-50 Diskus] 1 each IH BID #1 disk.w.dev 09/09/19 predniSONE [Deltasone -] 40 mg PO DAILY #8 tablet 09/09/19 Anemia: Yes Asthma: Yes COPD: No - Immunization History Immunization Up to Date: Yes - Psycho-Social/Smoking History Smoking Status: No Smoking History: Never smoked Have you smoked in the past 12 months: Yes Number of Cigarettes Smoked Daily: 7 If you are a former smoker, when did you quit?: 2months Information on smoking cessation initiated: No 'Breaking Loose' booklet given: 01/03/18 - Substance Abuse Hx (Audit-C & DAST Scrn) How often the patient has a drink containing alcohol: Never Score: In Men: 4 or > Positive; In Women: 3 or > Positive: 0 Screen Result (Pos requires Nsg. Audit-10AR): Negative In the last yr the pt used illegal drug/Rx for NonMed reason: No Score: Yes response is considered Positive: 0 Screen Result (Positive result requires Nsg. DAST-10): Negative Review of Systems - Review of Systems Able to Perform ROS?: Yes Comments:: 09/09/19 16:43 CONSTITUTIONAL: Absent: fever, chills, diaphoresis, generalized weakness, malaise, loss of appetite HEENT: Absent: rhinorrhea, nasal congestion, throat pain, throat swelling, difficulty swallowing, mouth swelling, ear pain, eye pain, visual Changes CARDIOVASCULAR: Absent: chest pain, loss of consciousness, palpitations, irregular heart rate, peripheral edema RESPIRATORY: Present: wheezing, shortness of breath Absent: cough, dyspnea with exertion, orthopnea, stridor, hemoptysis GASTROINTESTINAL: Absent: abdominal pain, abdominal distension, nausea, vomiting, diarrhea, constipation, melena, hematochezia GENITOURINARY: Absent: dysuria, frequency, urgency, hesitancy, hematuria, flank pain, genital kortney MUSCULOSKELETAL: Absent: myalgia, arthralgia, joint swelling SKIN: Absent: rash, itching, pallor HEMATOLOGIC/IMMUNOLOGIC: Absent: easy bleeding, easy bruising, lymphadenopathy, frequent infections ENDOCRINE: Absent: unexplained weight gain, unexplained weight loss, heat intolerance, cold intolerance NEUROLOGIC: Absent: headache, focal weakness or paresthesias, dizziness, unsteady gait, seizure, mental status changes, bladder or bowel incontinence PSYCHIATRIC: Absent: anxiety, depression, suicidal or homicidal ideation, hallucinations. Is the patient limited French proficient: No *Physical Exam - Vital Signs Last Vital Signs Temp Pulse Resp BP Pulse Ox 97.8 F 77 16 143/65 99 09/09/19 14:47 09/09/19 14:47 09/09/19 14:47 09/09/19 14:47 09/09/19 14:47 - Physical Exam 09/09/19 16:44 GENERAL: Well developed, well nourished. Awake and alert. No acute distress. HEENT: Normocephalic, atraumatic. PERRLA, EOMI. No conjunctival pallor. Sclera are non- icteric. Moist mucous membranes. Oropharynx is clear. NECK: Supple. Full ROM. No JVD. Carotid pulses 2+ and symmetric, without bruits. No thyromegaly. No lymphadenopathy. CARDIOVASCULAR: Regular rate and rhythm. No murmurs, rubs, or gallops. Distal pulses are 2+ and symmetric. PULMONARY: No evidence of respiratory distress. Mild expiratory wheezing at the L apice. Good aeration to the bases. No rales or rhonchi. ABDOMINAL: Soft. Non-tender. Non-distended. No rebound or guarding. No organomegaly. Normoactive bowel sounds. MUSCULOSKELETAL Normal range of motion at all joints. No bony deformities or tenderness. No CVA tenderness. EXTREMITIES: No cyanosis. No clubbing. No edema. No calf tenderness. SKIN: Warm and dry. Normal capillary refill. No rashes. No jaundice. NEUROLOGICAL: Alert, awake, appropriate. Cranial nerves 2-12 intact. No deficits to light touch and temperature in face, upper extremities and lower extremities. No motor deficits in the in face, upper extremities and lower extremities. Normoreflexic in the upper and lower extremities. Normal speech. Toes are down-going bilaterally. Gait is normal without ataxia. PSYCHIATRIC: Cooperative. Good eye contact. Appropriate mood and affect Medical Decision Making - Medical Decision Making 09/09/19 16:53 The patient is a 28 y/o M with PMH of asthma, who presents to the ER with two days of wheezing. THe patient states that he ran out of his advair this morning and he has not had a rescue inhaler for approximately one month. He notes that he asthma got worse at work because he is working in a cold environment. He has not seen his primary care doctor d/t insurance reasons. Denies fevers, cough, chest pain and dyspnea on exertion. No history of intubations for asthma. A/P: Asthma exacerbation O2 sats 99% ORA, not using accessory muscles to breath. Mild expiratory wheezing in the L apice MDI and dexamethasone given with relief of symptoms Repeat lung exam now without wheezing Refill advair and MDI DC home with PCP follow up I discussed the physical exam findings, ancillary test results and final diagnoses with the patient. I answered all of the patient's questions. The patient was satisfied with the care received and felt comfortable with the discharge plan and treatment plan. The Patient agrees to follow up with the primary care physician/specialist within 24-72 hours. Return precautions were given. Discharge - Discharge Information Problems reviewed: Yes Clinical Impression/Diagnosis: Asthma exacerbation, mild Condition: Stable Disposition: HOME - Admission No - Additional Discharge Information Prescriptions: Fluticasone/Salmeterol [Advair 250-50 Diskus] 1 each IH BID #1 disk.w.dev predniSONE [Deltasone -] 40 mg PO DAILY #8 tablet Albuterol Sulfate Inhaler - [Ventolin HFA Inhaler -] 1 - 2 inh PO Q4H #1 inhaler - Follow up/Referral Referrals: [facility] [place] [facility] [place] [Provider Group] - Patient Discharge Instructions Patient Printed Discharge Instructions: Asthma -- Adult Additional Instructions: You were seen for your asthma exacerbation today. Please restart your Advair as directed. Use the albuterol inhaler every 4 hours as needed for shortness of breath. Start the prednisone tomorrow and take as directed. Your COVID test will be back in 1 to 2 days. We will call you with the results. Please follow-up with your primary care doctor this week. Return to the ER for fever, cough, worsening shortness of breath or if you have any changes in her symptoms. - Post Discharge Activity
[2019-09-09] MEDS ORDERED: ALBUTEROL SO4 HFA INHALER IH ONE ×2 (15:52→15:55)
[2019-09-09] MEDS ORDERED: DEXAMETHASONE SOD PHOSPHATE 10 MG/1 ML VIAL ONE (15:55)
== END 2019-09-09 16:52 | disposition home or self-care (01) ==
LOC: JERFT 14:39
PROC: 3E0F7GC Introduction of Other Therapeutic Substance into Respiratory Tract, Via Natural or Artificial Opening (ICD-10-PCS; principal; 2019-09-09)
DX: J45.901 Unspecified asthma with (acute) exacerbation (principal)
CPT/HCPCS: 71046-TC-FY; 94640; 99283-25; U0003

== ENCOUNTER 2019-11-02 22:45 | Emergency (ER) | payer OTHER ==
[2019-11-02 22:55] VITALS: BP 136/81; PULSE 79; TEMP 97.2; BMI 23.6
[2019-11-02] MEDS ORDERED: ALBUTEROL SO4 2.5/IPRATROPIUM 0.5 INH SOL 3 ML VIAL.NEB. NEB ONE (23:22)
[2019-11-03] MEDS ORDERED: ALBUTEROL SO4 2.5/IPRATROPIUM 0.5 INH SOL 3 ML VIAL.NEB. NEB ONE (01:04)
--- NOTE | 2019-11-03 01:05 | PDOC ---
History of Present Illness - General Chief Complaint: Asthma Stated Complaint: ASTHMA Time Seen by Provider: 11/03/19 00:56 History Source: Patient Exam Limitations: No Limitations - History of Present Illness Initial Comments: Lucho is a 28 yo M w a hx of asthma who presents to the ER with two days of worsening SOB stating he is having an asthma exacerbation. He states he tried taking an albuterol inhaler at home but id didn't work so he came in for help. States he has been smoking lots of marijuana in past few days and believes this is what triggered his current asthma exacerbation. Also states there is a significant amount of ragweed in the air and that is setting off his asthma. States SOB symptoms are moderate and persistent. Denies chest pain, fevers, chills, nausea, vomiting, recent travel PCP: Shahzad Ronquillo PSH: None reported Allergies: seafood, environmental Social Hx: Smokes marijuana daily Past History - Medical History Allergies/Adverse Reactions: Allergies Allergy/AdvReac Type Severity Reaction Status Date / Time No Known Drug Allergies Allergy Verified 09/09/19 14:47 SEAFOOD Allergy Unknown Swelling Uncoded 09/09/19 14:47 Home Medications: Ambulatory Orders Albuterol 0.083% Nebulizer Deidre [Ventolin 0.083% Nebulizer Soln -] 1 neb NEB Q4H PRN #30 vial 02/02/18 Albuterol Sulfate Inhaler - [Ventolin Hfa Inhaler -] 1 - 2 inh PO Q4H 02/14/19 Albuterol Sulfate [Albuterol Sulfate Hfa] 2 puff IH Q4H PRN #1 hfa.aer.ad 05/10/19 Fluticasone/Salmeterol [Advair 250-50 Diskus] 1 each IH BID #1 blst.w.dev 08/02/19 predniSONE [Deltasone -] 40 mg PO DAILY #6 tablet 08/02/19 Albuterol Sulfate Inhaler - [Ventolin HFA Inhaler -] 1 - 2 inh PO Q4H #1 inhaler 09/09/19 Fluticasone/Salmeterol [Advair 250-50 Diskus] 1 each IH BID #1 disk.w.dev 09/09/19 predniSONE [Deltasone -] 40 mg PO DAILY #8 tablet 09/09/19 Albuterol Sulfate Inhaler - [Ventolin HFA Inhaler -] 1 - 2 inh PO Q4H #1 inhaler 11/03/19 Fluticasone/Salmeterol [Advair 250-50 Diskus] 1 each IH BID #1 blst.w.dev 11/03/19 Anemia: Yes Asthma: Yes COPD: No - Immunization History Immunization Up to Date: Yes - Psycho-Social/Smoking History Smoking Status: No Smoking History: Current some day smoker Have you smoked in the past 12 months: Yes Number of Cigarettes Smoked Daily: 3 If you are a former smoker, when did you quit?: 2months Information on smoking cessation initiated: Yes 'Breaking Loose' booklet given: 01/03/18 - Substance Abuse Hx (Audit-C & DAST Scrn) How often the patient has a drink containing alcohol: Never Score: In Men: 4 or > Positive; In Women: 3 or > Positive: 0 Screen Result (Pos requires Nsg. Audit-10AR): Negative Review of Systems - Review of Systems Able to Perform ROS?: Yes Comments:: CONSTITUTIONAL: Absent: fever, no chills, no fatigue EYES: Absent: visual changes ENT: Absent: ear pain, no sore throat CARDIOVASCULAR: Absent: chest pain, no palpitations RESPIRATORY: Present: Cough, SOB GI: Absent: abdominal pain, no nausea, no vomiting, no constipation, no diarrhea GENITOURINARY: Absent: dysuria, no frequency, no hematuria MUSKULOSKELETAL: Absent: back pain, no arthralgia, no myalgia SKIN: Absent: rash NEURO: Absent: headache *Physical Exam - Vital Signs Last Vital Signs Temp Pulse Resp BP Pulse Ox 97.2 F L 79 20 136/81 99 11/02/19 22:52 11/02/19 22:52 11/02/19 22:52 11/02/19 22:52 11/02/19 23:30 - Physical Exam GENERAL: Well-appearing, well-nourished. No apparent distress. HEENT: Normocephalic, atraumatic. PERRL, EOM intact. CARDIOVASCULAR: Normal S1, S2. Regular rate and rhythm. PULMONARY: Mild bilateral expiratory wheezes. No evidence of respiratory distress. No rales or rhonchi. ABDOMEN: Soft, non-distended, non-tender. EXTREMITIES: Normal ROM in all four extremities. No gross deformities. SKIN: Warm, dry. No rash NEUROLOGICAL: No focal neurological deficits. Medical Decision Making - Medical Decision Making Lucho is a 28 yo M w a hx of asthma who presents to the ER with two days of worsening SOB stating he is having an asthma exacerbation. He states he tried taking an albuterol inhaler at home but id didn't work so he came in for help. States he has been smoking lots of marijuana in past few days and believes this is what triggered his current asthma exacerbation. Also states there is a significant amount of ragweed in the air and that is setting off his asthma. States SOB symptoms are moderate and persistent. Denies chest pain, fevers, chills, nausea, vomiting, recent travel Vital Signs Temp Pulse Resp BP Pulse Ox 97.2 F L 79 20 136/81 99 11/02/19 22:52 11/02/19 22:52 11/02/19 22:52 11/02/19 22:52 11/02/19 23:30 DDx IBNLT: Asthma, SOB, viral syndrome Plan: Keila, re-assess Re-assessment: Patient feeling much better and no longer short of breath. Requesting to be discharged The patient appears clinically sober, has no evidence of clinical intoxication, is A&O x4, has no sustained nystagmus, and appears to be capable and have capacity to make reasonable decisions. The patient states they are currently in the emergency department, knows who the president is, states the correct time, correct day, and correct month. The patient is ambulatory in ER and has walked around the nursing station multiple times with a straight and steady gait, and is not ataxic. Tolerating PO well, ate a sandwich and drank juice. Denies having any SI or HI. Patient states will not be driving home. I discussed the physical exam findings, ancillary test results and final diagnoses with the patient. I answered all of the patient's questions. The patient was satisfied with the care received and felt comfortable with the discharge plan and treatment plan. The patient will call their primary care physician within 24 hours to arrange follow-up and will return to the Emergency Department with any new, persistent or worsening symptoms. Dispo: Home with asthma medication scripts Please note, this clinical encounter is taking place during a federal and state health care emergency attributable to the novel [place] Virus pandemic. The [place] of the Department of Health and Human Services has declared, pursuant to the Public Health Service Act 319F-3 (42 U.S.C. 247d-6d), that a covered persons activities related to medical countermeasures against COVID-19 will be immune from liability under Federal and State law. Discharge - Discharge Information Problems reviewed: Yes Clinical Impression/Diagnosis: Asthma Qualifiers: Asthma severity: unspecified severity Asthma persistence: intermittent Asthma complication type: unspecified Qualified Code(s): J45.20 - Mild intermittent asthma, uncomplicated Condition: Improved Disposition: HOME - Admission No - Additional Discharge Information Prescriptions: Fluticasone/Salmeterol [Advair 250-50 Diskus] 1 each IH BID #1 blst.w.dev Albuterol Sulfate Inhaler - [Ventolin HFA Inhaler -] 1 - 2 inh PO Q4H #1 inhaler - Follow up/Referral Referrals: Shahzad Ronquillo [Primary Care Provider] - - Patient Discharge Instructions Patient Printed Discharge Instructions: Asthma -- Adult Additional Instructions: You came into the ER with an asthma exacerbation. We gave you a duoneb which improved your breathing. You must return to the Emergency Department with any new complaints, if your symptoms persist and do not improve or if you develop any other new or worsening concerns. You can take over the counter Tylenol or Advil as needed for pain. Take as directed on the package insert. Do not exceed the recommended dosage. As discussed, please call to follow up with your Primary Care physician in 1-2 days to discuss what happened to you in the emergency room, and make sure you are being looked after and taken care of. Your emergency room visit is not complete without this follow up appointment. Please read the attached handouts for further information about your ER visit and what you should do moving forward. Thank you for coming to the [facility]. We hope you feel better soon! Print Language: OCCITAN - Post Discharge Activity
--- NOTE | 2019-11-03 01:28 | PDOC ---
Documentation entered by Rishabh Castro SCRIBE, acting as scribe for Radha Azevedo MD. Radha Azevedo MD: This documentation has been prepared by the Matthew mathis Angel, SCRIBE, under my direction and personally reviewed by me in its entirety. I confirm that the documentation accurately reflects all work, treatment, procedures, and medical decision making performed by me. Attending Attestation - Resident Resident Name: Louie Mclaughlin - ED Attending Attestation I have performed the following: I have examined & evaluated the patient, The case was reviewed & discussed with the resident, I agree w/resident's findings & plan - HPI HPI: 11/03/19 01:16 The patient is a 28 year old male with a significant past medical history of asthma who presents to the ED with 2 days of worsening SOB. The patient states he tried taking an albuterol inhaler at home with no relief, prompting him to come into the ED. The patient notes running out of his asthma medication (Advair 250/50) about a week ago. The patient reports smoking cigarettes a lot this past week which he feels contributed to his symptoms. The patient denies fever/chills, no change in appetite, no headaches or coughs. - Physicial Exam PE: 11/03/19 01:08 GENERAL: Awake, alert, and fully oriented, in no acute distress HEAD: No signs of trauma EYES: PERRLA, EOMI, sclera anicteric, conjunctiva clear ENT: Auricles normal inspection, hearing grossly normal, nares patent, oropharynx clear without exudates. Moist mucosa NECK: Normal ROM, supple, no lymphadenopathy, JVD, or masses LUNGS: Breath sounds equal, clear to auscultation bilaterally. No wheezes, and no crackles HEART: Regular rate and rhythm, normal S1 and S2, no murmurs, rubs or gallops ABDOMEN: Soft, nontender, normoactive bowel sounds. No guarding, no rebound. No masses EXTREMITIES: Normal range of motion, no edema. No clubbing or cyanosis. No cords, erythema, or tenderness NEUROLOGICAL: Cranial nerves II through XII grossly intact. Normal speech, normal gait SKIN: Warm, Dry, normal turgor, no rashes or lesions noted. - Medical Decision Making 11/03/19 01:15 Pt is improved with duonebs in the ER Ready to go home Discharge - Discharge Information Problems reviewed: Yes Clinical Impression/Diagnosis: Asthma Condition: Improved Disposition: HOME - Admission No - Additional Discharge Information Prescriptions: Fluticasone/Salmeterol [Advair 250-50 Diskus] 1 each IH BID #1 blst.w.dev Albuterol Sulfate Inhaler - [Ventolin HFA Inhaler -] 1 - 2 inh PO Q4H #1 inhaler - Follow up/Referral Referrals: Shahzad Ronquillo [Primary Care Provider] - - Patient Discharge Instructions Patient Printed Discharge Instructions: Asthma -- Adult Additional Instructions: You came into the ER with an asthma exacerbation. We gave you a duoneb which improved your breathing. You must return to the Emergency Department with any new complaints, if your symptoms persist and do not improve or if you develop any other new or worsening concerns. You can take over the counter Tylenol or Advil as needed for pain. Take as directed on the package insert. Do not exceed the recommended dosage. As discussed, please call to follow up with your Primary Care physician in 1-2 days to discuss what happened to you in the emergency room, and make sure you are being looked after and taken care of. Your emergency room visit is not complete without this follow up appointment. Please read the attached handouts for further information about your ER visit and what you should do moving forward. Thank you for coming to the [facility]. We hope you feel better soon! Print Language: FRISIAN - Post Discharge Activity
== END 2019-11-03 01:30 | disposition home or self-care (01) ==
LOC: JER 22:45
PROC: 3E0F7GC Introduction of Other Therapeutic Substance into Respiratory Tract, Via Natural or Artificial Opening (ICD-10-PCS; principal; 2019-11-02)
DX: J45.20 Mild intermittent asthma, uncomplicated (principal)
CPT/HCPCS: 99283-25

== ENCOUNTER 2020-04-21 16:20 | Emergency (ER) | payer BC, OTHER ==
[2020-04-21 16:28] VITALS: BP 133/80; PULSE 82; TEMP 98.3; BMI 22.0
== END 2020-04-21 16:50 | disposition home or self-care (01) ==
LOC: JCOVINFU 16:20
DX: J45.901 Unspecified asthma with (acute) exacerbation (principal)
CPT/HCPCS: 99282-25

== ENCOUNTER 2020-05-29 19:20 | Emergency (ER) | payer OTHER ==
[2020-05-29 19:34] VITALS: BP 136/69; PULSE 77; TEMP 98; BMI 22.8
[2020-05-29] MEDS ORDERED: ALBUTEROL SO4 HFA INHALER IH ONE ×2 (19:58→20:04)
== END 2020-05-29 21:12 | disposition home or self-care (01) ==
LOC: JER 19:20
DX: J45.909 Unspecified asthma, uncomplicated (principal)
CPT/HCPCS: 99283-25

== ENCOUNTER 2022-06-01 13:38 | Emergency (ER) | payer BC, OTHER ==
[2022-06-01 14:12] VITALS: BP 141/92; PULSE 84; RESP 17; TEMP 97.8; BMI 21.4
[2022-06-01] MEDS ORDERED: ALBUTEROL SO4 HFA INHALER IH ONE ×2 (14:41→14:43)
== END 2022-06-01 14:48 | disposition home or self-care (01) ==
LOC: JERFT 13:38
PROC: 3E0F7GC Introduction of Other Therapeutic Substance into Respiratory Tract, Via Natural or Artificial Opening (ICD-10-PCS; principal; 2022-06-01)
DX: J45.901 Unspecified asthma with (acute) exacerbation (principal); R06.02 Shortness of breath; R05.1 Acute cough; R07.9 Chest pain, unspecified; R11.2 Nausea with vomiting, unspecified; R20.2 Paresthesia of skin
CPT/HCPCS: 99283-25